=== PATIENT | male | born 1995 | race Caucasian/White ===

== ENCOUNTER 2018-06-03 20:33 | Emergency (ER) | payer OTHER ==
[2018-06-03] MEDS ORDERED: ALBUTEROL NEBULIZED 2.5 MG/3 ML INHALATION STA (20:50)
--- NOTE | 2018-06-03 21:13 | XR ---
EXAMINATION TYPE: XR chest 2V DATE OF EXAM: 06/03/2018 COMPARISON: NONE HISTORY: Cough TECHNIQUE: Frontal and lateral views of the chest are obtained. FINDINGS: Heart and mediastinum are normal. Lungs are clear. Diaphragm is normal. Bony thorax appear s normal. IMPRESSION: Normal chest.
--- NOTE | 2018-06-03 22:01 | ED ---
URI HPI - General Chief Complaint: Upper Respiratory Infection Stated Complaint: SOB Time Seen by Provider: 06/03/18 20:42 Source: patient, family, RN notes reviewed Mode of arrival: ambulatory Limitations: no limitations - History of Present Illness Initial Comments: This a 22-year-old male presents emergency Department chief complaint of intermittent shortness of breath. Patient states that his nose she's felt short of breath last 2 weeks. Patient denies any coughing, wheezing, headache, dizziness no URI symptoms. He denies any associated chest pain or palpitations. Patient states he is a nonsmoker no cardiac history no pulmonary issues. Patient states he does have some burning in his chest and he noticed that he seems to have reflux or frequent than usual. Denies any current abdominal pain denies any nausea vomiting today though he states when symptoms started they did start with vomiting. - Related Data Previous Rx's Medication Instructions Recorded Omeprazole 40 mg PO DAILY #14 capsule. 06/03/18 Allergies Allergy/AdvReac Type Severity Reaction Status Date / Time No Known Allergies Allergy Verified 06/03/18 20:36 Review of Systems ROS Statement: Those systems with pertinent positive or pertinent negative responses have been documented in the HPI. ROS Other: All systems not noted in ROS Statement are negative. Past Medical History Past Medical History: No Reported History History of Any Multi-Drug Resistant Organisms: None Reported Past Surgical History: No Surgical Hx Reported Past Psychological History: No Psychological Hx Reported Smoking Status: Never smoker Past Alcohol Use History: Occasional Past Drug Use History: None Reported General Exam Limitations: no limitations General appearance: alert, in no apparent distress Head exam: Present: atraumatic, normocephalic, normal inspection Eye exam: Present: normal appearance, PERRL, EOMI. Absent: scleral icterus, conjunctival injection, periorbital swelling ENT exam: Present: normal exam, normal oropharynx, mucous membranes moist, TM's normal bilaterally, normal external ear exam Neck exam: Present: normal inspection, full ROM. Absent: tenderness, meningismus, lymphadenopathy Respiratory exam: Present: normal lung sounds bilaterally. Absent: respiratory distress, wheezes, rales, rhonchi, stridor Cardiovascular Exam: Present: regular rate, normal rhythm, normal heart sounds. Absent: systolic murmur, diastolic murmur, rubs, gallop, clicks GI/Abdominal exam: Present: soft, normal bowel sounds. Absent: distended, tenderness, guarding, rebound, rigid Back exam: Absent: CVA tenderness (R), CVA tenderness (L) Skin exam: Present: warm, dry, intact, normal color. Absent: rash Course Vital Signs 06/03/18 06/03/18 06/03/18 20:33 21:17 21:25 Temperature 98.6 F Pulse Rate 89 96 98 Respiratory 20 20 Rate Blood Pressure 149/81 O2 Sat by Pulse 100 Oximetry Medical Decision Making - Medical Decision Making 22-year-old male presented for intermittent shortness of breath. Patient had EKG, chest x-ray which were all unremarkable. He has normal vitals at this time. Patient clinically does not appear to be short of breath. Symptoms are most likely caused from GERD. Patient was started on omeprazole once daily at this time and follow-up with PCP tomorrow return for any worsening symptoms. - EKG Data EKG Comments: EKG performed at 21:51 normal sinus rhythm with rate of 78 VT 156 QRS 90 QT/QTC 382/412 Disposition Clinical Impression: GERD (gastroesophageal reflux disease) Disposition: HOME SELF-CARE Condition: Stable Instructions: Gastroesophageal Reflux Disease (ED), Diet for Stomach Ulcers and Gastritis (ED) Additional Instructions: Please return to the Emergency Department if symptoms worsen or any other concerns. Prescriptions: Omeprazole 40 mg PO DAILY #14 capsule.dr Is patient prescribed a controlled substance at d/c from ED?: No Referrals: Betty Banuelos MD [STAFF PHYSICIAN] - 1-2 days Time of Disposition: 22:00
[2018-06-03 22:28] VITALS: BP 138/62; PULSE 67; RESP 18; TEMP 98.2
== END 2018-06-03 22:28 | disposition home or self-care (01) ==
LOC: EC 20:33
DX: K21.9 Gastro-esophageal reflux disease without esophagitis (principal); R06.02 Shortness of breath
CPT/HCPCS: 71046; 93005; 94640; 99283